=== PATIENT | female | born 1990 | race Caucasian/White ===

== ENCOUNTER 2019-07-31 12:54 | Outpatient (CLI) | payer BC ==
[~2019-07-31 12:54] MED LIST: Iopamidol 300 61% 50 ML VIAL FS ONE
--- NOTE | 2019-07-31 14:26 | RAD ---
Exam: Hysterosalpingogram HISTORY: Difficulty getting . Female infertility COMPARISON: None FINDINGS: Retrograde opacification of the endometrium is noted. There is a concavity along the superi or margin of the endometrium. The possibility of a septated uterus cannot be excluded. There is patency and both fallopian tubes. Free spillage in the left and right hemipelvis. IMPRESSION: 1. Patent left and right fallopian tube. Free spillage in the left and right hemipelvis 2. Cavity along the superior margin of the endometrium. The possibility of a septated uterus cannot b e excluded. Consider pelvic MRI. CODE T
== END 2019-07-31 12:55 | disposition home or self-care (01) ==
LOC: RAD 12:54
PROVIDERS: ATTEND Obstetrics & Gynecology
DX: N97.9 Female infertility, unspecified (principal)
CPT/HCPCS: 58340; 74740; Q9967